=== PATIENT | male | born 1995 | race Caucasian/White ===

== ENCOUNTER 2024-07-02 08:20 | Emergency (ER) | payer BC | END 2024-07-02 10:57 | disposition home or self-care (01) | LOC: JD.ED 08:20 | DX: J40 Bronchitis, not specified as acute or chronic (principal); F17.210 Nicotine dependence, cigarettes, uncomplicated; Z91.010 Allergy to peanuts | CPT/HCPCS: 71046; 71046-26; 87428-QW; 87651-QW; 99285 ==